=== PATIENT | female | born 1985 | race African-American/Black ===

== ENCOUNTER 2017-10-18 18:43 | Emergency (ER) | payer OTHER ==
[2017-10-18 18:59] VITALS: BP 112/71
[2017-10-18] MEDS ORDERED: LIDOCAINE PATCH 5% TOP STA (20:06)
[2017-10-18] MEDS ORDERED: KETOROLAC 60 MG/2 ML VIAL IM STA (20:06)
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
== END 2017-10-18 21:16 | disposition home or self-care (01) ==
LOC: ED 18:43
DX: S32.019A Unspecified fracture of first lumbar vertebra, initial encounter for closed fracture (principal); S32.029A Unspecified fracture of second lumbar vertebra, initial encounter for closed fracture; S32.039A Unspecified fracture of third lumbar vertebra, initial encounter for closed fracture; S32.049A Unspecified fracture of fourth lumbar vertebra, initial encounter for closed fracture; V89.2XXA Person injured in unspecified motor-vehicle accident, traffic, initial encounter; Y92.410 Unspecified street and highway as the place of occurrence of the external cause
CPT/HCPCS: 72100; 96372; 99283; A9270

== ENCOUNTER 2018-06-09 13:17 | Outpatient (CLI) | payer OTHER ==
[2018-06-09 16:54] VITALS: BP 129/64
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
== END 2018-06-09 17:10 | disposition home or self-care (01) ==
LOC: WFO 13:17 → FBP 13:23 → WFO 17:10
PROVIDERS: ATTEND Obstetrics & Gynecology
DX: O99.89 Other specified diseases and conditions complicating pregnancy, childbirth and the puerperium (principal); M54.5 Low back pain; V43.92XA Unspecified car occupant injured in collision with other type car in traffic accident, initial encounter; Z3A.21 21 weeks gestation of pregnancy
CPT/HCPCS: 99213

== ENCOUNTER 2018-07-20 08:10 | Outpatient (CLI) | payer OTHER | END 2018-07-20 08:11 | disposition home or self-care (01) | LOC: LAB 08:10 | PROVIDERS: ATTEND Nurse Practitioner Obstetrics & Gynecology | DX: O99.810 Abnormal glucose complicating pregnancy (principal) | CPT/HCPCS: 36415; 82951; 82952; 86850 ==

== ENCOUNTER 2018-09-22 12:09 | Outpatient (CLI) | payer OTHER ==
[2018-09-22 20:06] LABS: TRICHOMONAS VAGINALIS DNA NEGATIVE (NEGATIVE)
== END 2018-09-22 23:59 | disposition home or self-care (01) ==
LOC: LAB.R 12:09
PROVIDERS: ATTEND Nurse Practitioner Obstetrics & Gynecology
DX: Z36.85 Encounter for antenatal screening for Streptococcus B (principal); Z11.3 Encounter for screening for infections with a predominantly sexual mode of transmission
CPT/HCPCS: 87491; 87591; 87661; 87797

== ENCOUNTER 2018-10-19 09:47 | Outpatient (CLI) | payer OTHER ==
[2018-10-19 10:12] VITALS: BP 122/67
--- NOTE | 2018-10-20 04:09 | PROCEDURE REPORT ---
- HPI Diagnosis/Indication for NST: Other Current [facility] 10/16/18 Gestation 40 Weeks and 3 Days 1 Para 0 Vital Signs Temperature 36.9 C 10/19/18 10:11 Heart Rate 86 10/19/18 10:11 Respiratory Rate 17 10/19/18 10:11 Blood Pressure 122/67 10/19/18 10:11 O2 Saturation 100 10/19/18 10:11 Temperature 36.9 C 10/19/18 10:11 Heart Rate 86 10/19/18 10:11 Respiratory Rate 17 10/19/18 10:11 Blood Pressure 122/67 10/19/18 10:11 O2 Saturation 100 10/19/18 10:11 - NST Procedure NST Procedure Start Date 10/19/18 Start Time 09:54 Stop Time 10:45 Vibroacoustic Stimulation Used No Patient States Movement No - Results and Plan Findings/Impression: NST reactive. Baseline 135, moderate variability, + accels, no decels. 2 uterine contractions noted via tocometry which patient states are not uncomfortable and feel like deanne vang contractions. Plan: Date of service: 10/19/2018 Aliza is a 33yo @ 40.3wks gestation who presents to [facility] with c/o "not feeling well" and being very uncomfortable. She denies VB, Lof, or contractions. She reports +FM. NST reactive, baseline 135, moderate variability, + accels, no decels Plan: Patient to return this evening for pre-induction cervical ripening or sooner PRN. Pt released home with precautions. She verbalized understanding and denies further questions or concerns at this time. FINAL DIAGNOSIS: Generalized aches and pains in full term , third trimester
== END 2018-10-19 10:55 | disposition home or self-care (01) ==
LOC: WFO 09:47 → FBP 09:49 → WFO 10:55
PROVIDERS: ATTEND Nurse Practitioner Obstetrics & Gynecology
DX: Z34.03 Encounter for supervision of normal first pregnancy, third trimester (principal)
CPT/HCPCS: 59025; 99212

== ENCOUNTER 2018-10-19 17:13 | Inpatient (IN) | payer OTHER ==
[2018-10-19] MEDS ORDERED: ONDANSETRON 4 MG/2 ML VIAL IVP PRN (17:36)
[2018-10-19] MEDS ORDERED: ZOLPIDEM 5 MG TABLET PO PRN (17:41)
[2018-10-19] MEDS: SODIUM CHLORIDE FLUSH 0.9% 10 ML SYRINGE IVP PRN ×2 (18:38→22:37)
[2018-10-19] MEDS: miSOPROStol 100 MCG TABLET BC SCH ×2 (18:38→22:37)
[2018-10-19 19:13] LABS: BASOPHILS % (AUTO) 0.2 %; EOSINOPHILS # (AUTO) 0.1 10^3/uL (0.0-0.7); EOSINOPHILS % (AUTO) 0.8 %; HGB - HEMOGLOBIN 11.4 g/dL (12.0-16.0); LYMPHOCYTES # (AUTO) 2.3 10^3/uL (1.5-3.5); MEAN CORPUSCULAR HEMOGLOBIN 30.6 pg (27.0-31.0); MEAN CORPUSCULAR HGB CONC 33.1 g/dL (32.0-36.0); MEAN CORPUSCULAR VOLUME 92.5 fL (81.0-99.0); MEAN PLATELET VOLUME 10.5 fL (7.9-10.8); MONOCYTES # (AUTO) 0.5 10^3/uL (0.0-1.0); MONOCYTES % (AUTO) 8.3 %; NEUTROPHILS # (AUTO) 3.4 10^3/uL (1.5-6.6); NEUTROPHILS % (AUTO) 54.2 %; PLT - PLATELET COUNT 262 10^3/uL (130-450); RED BLOOD COUNT 3.72 10^6/uL (4.20-5.40); RED CELL DISTRIBUTION WIDTH 12.6 % (12.0-15.0); WHITE BLOOD COUNT 6.3 x10^3/uL (4.8-10.8)
[2018-10-19] MEDS ORDERED: CALCIUM CARBONATE CHEW 500 MG TABLET PO PRN (19:46)
[2018-10-20] MEDS ORDERED: SODIUM CHLORIDE FLUSH 0.9% 10 ML SYRINGE IVP SCH (01:00)
[2018-10-20] MEDS: miSOPROStol 100 MCG TABLET BC SCH ×2 (04:32→09:35)
[2018-10-20] MEDS ORDERED: fentaNYL 100 MCG/2 ML VIAL IVP ONE (05:47)
[2018-10-20] MEDS: SODIUM CHLORIDE FLUSH 0.9% 10 ML SYRINGE IVP PRN ×2 (06:09→22:50)
--- NOTE | 2018-10-20 07:47 | HISTORY & PHYSICAL EXAMINATION ---
Admit History - Visit Reason Visit Reason: Other - : 1 Parity: 0 Premature: 0 Ectopic: 0 : 0 Care: positive: [facility] Risk/History: positive: None Complications This : positive: None Smoking Status: Former smoker - Mother's Labs Mother's Blood Type: positive: A Mother's RH: positive: Positive GBS: positive: Group B Step Negative Rubella Status: positive: Immune Meds/Allgy - Home Medications Home Medications: Ambulatory Orders Medication Instructions Recorded Confirmed Hydrocodone/Acetaminophen 1 - 2 each PO Q6H PRN #10 tablet 10/18/17 [Hydrocodon-Acetaminophen 5-325] - Allergies Allergies/Adverse Reactions: Allergies Allergy/AdvReac Type Severity Reaction Status Date / Time No Known Drug Allergies Allergy Verified 10/18/17 19:00 Physical - Abdominal Exam Vital Signs: Temp Pulse Resp BP Pulse Ox 36.8 C 95 16 130/73 100 10/19/18 17:29 10/19/18 17:29 10/19/18 17:29 10/19/18 17:29 10/19/18 17:29 Contraction Frequency (min/apart): rare Contraction Intensity: positive: Mild Uterine Resting Tone: positive: Soft - Monitoring Heart Rate Baseline: 130 Strip Review: positive: Category I - Presentation Presentation: positive: Vertex - Vaginal Exam Membranes: positive: Membranes intact Dilation (in cm): fingertip Effacement (%): 50 Station: positive: -3 Cervical Position: positive: Posterior - Speculum Exam Speculum Exam Performed: positive: No Plan for Labor - Plan For Labor I expect patient to be DC'd or transferred within 96 hours.: Yes Plan for Labor: HPI: This 33yo @ 40.4wks gestation by LMP c/w 12.6wk U/S presented on 10/19/2018 for pre-induction cervical ripening. Upon arrival SVE fingertip/50/- 3, vertex, posterior with intact membranes. She denies VB, Lof, or contractions with the exception of occasional deanne vang contractions which she can feel but are not uncomfortable. She reports +FM. She has been a patient of [facility] since her transfer of care @ 26wks from [facility] where she received regular care. She has had an uneventful and healthy with the exception of some significant N/V in the first trimester and an impaired 1 hour GTT with 3 hour GTT WNL. She was placed in observation status for pre-induction cervical ripening in anticipation for elective induction of labor. Dating Criteria: LMP: 01/09/2019 Initial ultrasound @ 12.6wks c/w LMP dating Serial exams - agree OB History: G1: Current Medications: PNV Allergies: NKDA PMHx: no significant Surgical Hx: none Social Hx: Former smoker; never used smokeless tobacco. No ETOH or IVDA. No STI Hx. Denies HSV exposure. Boyfriend Lonnel Family Hx: no significant labs: Hgb 11.4 Hct 34.4 PLT 262 A positive; antibody negative Rubella immune RPR nonreactive Hep B neg Hep C neg Varicella immune GC/CT neg 28wk labs: 1 hour GTT 169 3 hour GTT 95, 155, 138, 118- WNL GBS negative Genetic screening: Serum integrated - neg Cystic fibrosis - neg Immunizations: Tdap 08/03/2018 Ultrasounds: Initial ultrasound at 12.6wks gestation c/w LMP dating FAS 06/02/2018 WNL. Anterior placenta, no previa. 3VC. Size c/w dating Physical Exam: Normocephalic, atraumatic Heart RRR w/o M/G/R Lungs CTAB Abdomen gravid, soft, nontender EFW 3200g SVE fingertip/50/-3, vertex verified by bedside ultrasound, membranes intact FHR baseline 135, moderate variability, + accels, no decels Bilateral LE's no edema Assessment: 33yo @ 40.4wks gestation by LMP c/w first trimester ultrasound GBS neg Pre-induction cervical ripening FHR Category I Plan: Observation status until active labor, SROM, or placement of epidural Pre-induction cervical ripening with 50mcg BC misoprostol q 4 hours Continuous monitoring Encouraged ambulation and position changes Advised use of Jacuzzi and nitrous oxide for pain management. Ambien 5mg PO last night was unsuccessful in promoting sleep - if not in active labor tonight, will administer 10mg ambien PO x 1 FHR appears to have slightly abnormal rhythm with potential dropped beats - termination clerk CHICKEN HATCHERY HELPER notified and advised to continue with current plan with close monitoring. Anticipate spontaneous vaginal delivery. Pt and her grandmother verbalized understanding and agree to above plan. They deny further questions or concerns at this time.
[2018-10-20] MEDS ORDERED: fentaNYL 100 MCG/2 ML VIAL IVP STA (13:14)
[2018-10-20] MEDS ORDERED: ZOLPIDEM 5 MG TABLET PO PRN (13:22)
[2018-10-20] MEDS ORDERED: LACTATED RINGERS 1,000 ML IV ONE ×2 (13:40→14:50)
[2018-10-20] MEDS ORDERED: fent/BUPIV 2 MCG/0.125% 250 ML EP ONE (19:54)
--- NOTE | 2018-10-20 20:17 | ANESTHESIA ---
Pre-Anesthesia VS, & Labs - Diagnosis active labor - Procedure vaginal delivery Vital Signs: Temp Pulse Resp BP Pulse Ox 36.8 C 95 16 130/73 100 10/19/18 17:29 10/19/18 17:29 10/19/18 17:29 10/19/18 17:29 10/19/18 17:29 Height 5 ft 4 in Weight (kg) 88.904 kg Body Mass Index 31.2 - NPO Other Last Fluid Intake: clear liquids - Is Patient ?: Yes - Lab Results Current Lab Results: Laboratory Tests 10/19/18 18:35: WBC 6.3, RBC 3.72 L, Hgb 11.4 L, Hct 34.4 L, MCV 92.5, MCH 30.6, MCHC 33.1, RDW 12.6, Plt Count 262, MPV 10.5, Neut # (Auto) 3.4, Lymph # (Auto) 2.3, [place] # (Auto) 0.5, Eos # (Auto) 0.1, Baso # (Auto) 0.0, Absolute Nucleated RBC 0.00, Nucleated RBC % 0.0 Fish Bones: 10/19/18 18:35 Home Medications and Allergies Active Medications Calcium Carbonate/Glycine (Tums) 500 mg PO Q2H PRN PRN Reason: heartburn Last Admin: 10/19/18 20:27 Dose: 500 mg Misoprostol (Cytotec) 50 mcg BC Q4HR GILMER Last Admin: 10/20/18 09:35 Dose: 50 mcg Ondansetron HCl (Zofran Inj) 4 mg IVP Q4HR PRN PRN Reason: Nausea / Vomiting Last Admin: 10/20/18 18:40 Dose: 4 mg Sodium Chloride (Normal Saline Flush 0.9%) 10 ml IVP 0100,0900,1700 GILMER Sodium Chloride (Normal Saline Flush 0.9%) 10 ml IVP PRN PRN PRN Reason: NEEDED PER PROVIDER ORDERS Last Admin: 10/20/18 06:09 Dose: 10 ml Zolpidem Tartrate (Ambien) 10 mg PO QPM PRN PRN Reason: Insomnia Allergies/Adverse Reactions: Allergies Allergy/AdvReac Type Severity Reaction Status Date / Time No Known Drug Allergies Allergy Verified 10/18/17 19:00 Anes History & Medical History - Anesthetic History Family history of Anesthesia Complications: Denies Family history of Malignant Hyperthermia: Denies - Medical History Cardiovascular: reports: None Pulmonary: reports: None Gastrointestinal: reports: GERD (during ) Urinary: reports: None Neuro: reports: None Musculoskeletal: reports: None Endocrine/Autoimmune: reports: None Blood Disorders: reports: None Smoking Status: Former smoker Psychosocial: reports: No issues indicated - Obstetrical History : 1 Parity: 0 Events: positive: None Complications: positive: None Exam General: Alert, Oriented x3, Cooperative Dental: WNL Mouth Openin Fingerbreadth Neck Mobility: Normal Mallampati classification: II Thyromental Distance: greater than 6 cm Mental/Cognitive Status: Alert/Oriented X3, Normal for patient Plan Anesthesia Type: Epidural Consent for Procedure(s) Verified and Reviewed: Yes Code Status: Attempt Resuscitation ASA classification: 2-Mild systemic disease Is this case an emergency?: No
[2018-10-20] MEDS ORDERED: NALOXONE 0.4 MG/ML VIAL IVP PRN (20:54)
[2018-10-20] MEDS ORDERED: ONDANSETRON 4 MG/2 ML VIAL IVP PRN (20:54)
[2018-10-20] MEDS ORDERED: LACTATED RINGERS 500 ML IV ONE (20:54)
[2018-10-20] MEDS ORDERED: ePHEDrine 50 MG/ML VIAL IVP PRN (20:54)
[2018-10-20] MEDS ORDERED: fent/BUPIV 2 MCG/0.125% 250 ML EP PRN (20:54)
[2018-10-20] MEDS ORDERED: NALBUPHINE 10 MG/ML AMP IVP PRN (20:54)
--- NOTE | 2018-10-20 22:08 | PROVIDER PROGRESS NOTE ---
Labor Progress Note - Uterine Monitoring Uterine Monitoring Mode: positive: External toco Contraction Frequency (min/apart): 3-8 Contraction Intensity: positive: Moderate to strong Uterine Resting Tone: positive: Soft - Monitoring Monitor Mode: positive: External ultrasound Heart Rate Baseline: 135 Heart Rate Variability: positive: Minimal (0-5 bpm) Accelerations: positive: Present, 15x15 Decelerations: positive: None Strip Review: positive: Category II - Vaginal Exam Dilation (in cm): 4-5 Effacement (%): 90 Station: -2 Cervical Position: Midposition - Labor Progress Note Labor Progress Note/Additional Text: S: Patient comfortable with epidural. Her grandmother is supportive at the bedside and is supportive. Patient called nurse with feeling that she urinated in bed and upon further investigation it was clear that she had ruptured membranes. Both pt and her grandmother were very pleased and relieved by this. Pt feels she will be able to sleep now that she is comfortable with epidural. Currently laying in bed on right side. O: FHR baseline 135, moderate variability with prolonged periods of minimal variability. Occasional accelerations. No decelerations. Audible arrhythmia persistent. Contractions palpate moderate-firm every 3-8 minutes with soft resting tone. SROM moderate amount of clear fluid A: 33yo @ 40.4wks gestation by LMP Active labor GBS neg Epidural per maternal request FHR Category I with intermittent periods of Category II - overall reassuring SROM @ 2150 P: Initiate pitocin with titration per protocol Continuous monitoring Pediatric presence will be requested at delivery secondary to arrhythmia and intermittent Category II FHR tracing Encouraged position changes in bed on peanut ball. Anticipate spontaneous vaginal delivery.
[2018-10-20] MEDS ORDERED: OXYTOCIN/DEXTROSE 5 % 30 UNIT/500 ML BAG IV ONE (22:17)
[2018-10-20] MEDS ORDERED: OXYTOCIN/DEXTROSE 5 % 30 UNIT/500 ML BAG IV SCH (22:25)
[2018-10-20] MEDS ORDERED: LACTATED RINGERS 1,000 ML IV SCH (23:00)
[2018-10-21] MEDS ORDERED: HYDROCORTISONE 1% CREAM 28 GM TUBE PR PRN (03:36)
[2018-10-21] MEDS ORDERED: WITCH HAZEL/GLYCERIN 1 PAD TOP PRN (03:36)
[2018-10-21] MEDS ORDERED: OXYTOCIN/DEXTROSE 5 % 30 UNIT/500 ML BAG IV PRN (03:37)
--- NOTE | 2018-10-21 03:48 | DELIVERY NOTE ---
Delivery Note - Labor Labor: positive: Augmented by oxytocin - Delivery Method Delivery Method: positive: Spontaneous vaginal delivery - Cervical Ripening Method Cervical Ripening Method: positive: Misoprostil - Presentation Presentation: positive: Vertex, MATILDA - left occiput anterior - Nuchal Cord Nuchal Cord: positive: Present, Reduced - Amniotic Fluid Description Amniotic Fluid Description: positive: Clear - Episiotomy Type Episiotomy Type: positive: None - Laceration Laceration: positive: 1st degree - Suture Suture Type: positive: Vicryl Suture Size: positive: 2-0 - Delivery Outcome Delivery Outcome: positive: Livebirth - [place] : positive: Placed in direct skin contact with mother, Bulb syringe, Stimulated, Warmed, Boomer used sex: positive: Female - Cord Cord: positive: 3 vessels - Placenta Placenta: positive: Intact, Spontaneous - Estimated Blood Loss Estimated Blood Loss (in cc): 350 - Post Delivery Events Post Delivery Events: positive: No post delivery events - Delivery Comments (Free Text/Narrative) Delivery Comments (Free Text/Narrative): Labor: This 33yo @ 40.5wks gestation by LMP presented on 10/19/2018 at approximately 1700 for pre-induction cervical ripening in anticipation for elective induction of labor. Cervix was fingertip/thick/high, vertex. She was given 50mcg BC misoprostol q 4 hours for a total of 5 administered doses. Pt progressed to 1/50/-3, vertex and was no longer coping well with contractions. She requested an epidural for pain management and it was placed for adequate pain relief. FHR demonstrated Category I pattern with prolonged periods of Category II but was overall reassuring with no decelerations. arrhythmia noted. Onset of active labor 10/20/2018 @ approximately 1300. SROM occurred at 2150 and was noted to be a moderate amount of clear fluid. Pitocin administered with titration per protocol for a max infusion rate of 1mU/mL. Patient progressed to c/c/+2 at 0203 on 10/21/2018. Onset of active pushing 0225. : Normal of viable female at 0257 on 10/21/2018. Nuchal cord x 1 was reduced. The was placed on maternal abdomen, stimulated, dried, and placed skin to skin. Pitocin administered via IV for hemostasis. The umbilical cord was allowed to stop pulsating at which time it was doubly clamped by CNM and cut by grandmother of the patient. Cord blood was obtained. 3VC. 's 6/8 and 1 and 5 min respectively. Placenta delivered spontaneously and intact at 0301. EBL 350mL. Uterine fundus firm and there is no excessive bleeding. The perineum, vagina, and cervix were inspected and found to have 1st degree vaginal laceration which was repaired using a 2-[address]-1 needle, in standard fashion and under sterile conditions. Vaginal examination following repair completed. Tissues well approximated. initiated. Family bonding well. Both mother and baby were left in stable condition.
[2018-10-21] MEDS: ACETAMINOPHEN 500 MG TABLET PO SCH ×2 (05:20→15:35)
[2018-10-21] MEDS: IBUPROFEN 800 MG TABLET PO SCH ×3 (05:20→18:22)
[2018-10-21] MEDS: DOCUSATE SODIUM 100 MG CAPSULE PO SCH (09:07)
[2018-10-21] MEDS ORDERED: SODIUM CHLORIDE FLUSH 0.9% 10 ML SYRINGE ONE (09:19)
[2018-10-22] MEDS: ACETAMINOPHEN 500 MG TABLET PO SCH ×2 (00:06→08:46)
[2018-10-22] MEDS: IBUPROFEN 800 MG TABLET PO SCH ×3 (00:06→12:23)
[2018-10-22] MEDS: DOCUSATE SODIUM 100 MG CAPSULE PO SCH (08:46)
--- NOTE | 2018-10-22 10:09 | Discharge Plan ---
Discharge Plan Problem Reviewed?: Yes Disposition: Home, Self Care Condition: Good Diet: Regular Activity Restrictions: No Restrictions Shower Restrictions: No Driving Restrictions: No Weight Bearing: Full Weight No Smoking: If you smoke, Please STOP! Call for help.
--- NOTE | 2018-10-22 10:13 | PROVIDER PROGRESS NOTE ---
Subjective - Subjective Subjective: S: Bonding well with baby. without difficulty. Bleeding decreased and is light. Pain well controlled with oral medications. She is glad to be going home today and feels well supported. O: BP 128/73, T 36.9, RR 16, HR 88 Heart RRR w/o M/G/R, lungs CTAB, abdomen soft and nontender with fundus firm at U-1. Bilateral LE's no edema. A: 33yo -->P1 PPD#1 s/p TSVD of viable female P: Reviewed pp sefl care and warning s/sx Advised continuation of PNV while Continue ibuprofen and colace OTC for pain management and constipation relief PRN. F/u in 1 week for support visit and in 3 weeks for routine pp visit or sooner PRN. Pt verbalized understanding and agrees to above plan. She denies further questions or concerns at this time. Objective - Vital Signs/Intake & Output Vital Signs: Vital Signs x48h Temp Pulse Resp BP Pulse Ox 10/22/18 08:00 36.9 C 88 16 128/73 10/22/18 04:30 37.1 C 83 16 108/59 L 99 Intake & Output: Intake & Output 10/19/18 10/20/18 10/21/18 10/22/18 23:59 23:59 23:59 23:59 Intake Total 1050 Output Total 75 1425 Balance -32 -007 - Lab Results Fish Bones: 10/19/18 18:35
[2018-10-22 13:16] VITALS: BP 123/70
--- NOTE | 2018-10-22 13:54 | Labor Flowsheet ---
Labor Flowsheet Datetime Report Generated by CPN: 10/22/2018 13:54 Datetime: 10/22/2018 12:19 VITAL SIGNS NBP Sys/Adina/Mean (mmHg): 123 : 70 : 83 Pulse: 88 LaborFlag: Labor Datetime: 10/21/2018 06:55 SpO2 (%): 99 Datetime: 10/21/2018 03:31 Hygiene: Mae Care; Underpad Changed Datetime: 10/21/2018 03:08 Respirations: 18 Temperature (C): 37.0 Datetime: 10/21/2018 02:55 ASSESSMENT A Monitor Mode: External US FHR Baseline Rate : 145 Variability: Moderate 6-25 bpm Accelerations: None Category: Category II Comments: loss of FHR with pushing Oxygen Method: Room Air STAGE 2 Pushing: Coached on Pushing; Urge to Push Pushing Position: Pushing with Contractions Pushing Progress: Descent with Pushing; with Pushing Datetime: 10/21/2018 02:50 UTERINE ACTIVITY Monitor Mode: External Frequency (min): 3-4 Quality: Moderate Duration (sec): 60-90 Pattern: Normal: <= 5 Contractions in 10 Minutes Resting Tone (Palpate): Relaxed Datetime: 10/21/2018 02:45 Monitor Interventions for UA: [place] Adjusted Datetime: 10/21/2018 02:30 Decelerations: Variable Datetime: 10/21/2018 02:22 I/O Interventions: Sandhu Discontinued Datetime: 10/21/2018 02:15 COMMUNICATION Communication: Provider at Bedside Provider Notified (Name): A Brody CNM Datetime: 10/21/2018 02:03 VAGINAL EXAM Dilatation (cm): 10.0 Effacement (%): 100 Station: 2 Exam by: Austin Viramontes RN Notification Reason: Status Update; Status; Labor Status Communication Comments: patient complete and +2, provider coming in for delivery Datetime: 10/21/2018 02:00 MATERNAL ASSESSMENT Level of Consciousness: Fully Conscious Headache: Denies Breath Sounds, Left: Clear and Equal Breath Sounds, Right: Clear and Equal Nausea/Vomiting: Denies RUQ Epigastric Pain: Denies TEACHING Instructional Method: Verbal Plan of Care: Plan of Care Discussed; Vaginal Delivery Datetime: 10/21/2018 01:59 Pitocin Checklist: At Least 1 Acceleration of 15 bpm x 15 Seconds in 30 Minutes or Adequate Variabi lity; No More than 5 Uterine Contractions in 10 Minutes for any 20 Minute Interval; Uterus Palpates S oft between Contractions Contraction Comments: coupling contractions Monitor Interventions for FHR: Ultrasound Adjusted FHR Baseline Changes: No Baseline Change Pain Presence: None/Denies Patient Position/Activity: Semi-Fowlers Anesthesia Level Check: T9 Datetime: 10/21/2018 01:30 Actions for Decelerations: Side to Side Datetime: 10/21/2018 00:43 Patient Care Comments: pillow between legs Datetime: 10/21/2018 00:00 Temperature Route: Oral Datetime: 10/20/2018 22:56 PATIENT CARE IV/Blood Work: IV Infusing per Order; IV Bag Number @ Datetime: 10/20/2018 22:40 MEDICATIONS Pitocin (milliunits): Started @ 1 Datetime: 10/20/2018 21:53 Vaginal Bleeding: Normal Show Cervix, Consistency: Soft Cervix, Position: Midposition Datetime: 10/20/2018 21:50 Membrane Status: Ruptured Membranes Rupture Method: Spontaneous Amniotic Fluid Color: Clear Amniotic Fluid Amount: Moderate Amniotic Fluid Odor: Normal Nitrazine: Positive Datetime: 10/20/2018 20:38 Epidural Procedure: Test Dose Datetime: 10/20/2018 20:29 PROCEDURE TIME OUT Procedure Type: 2030 Procedure Verify: Correct Patient Identity; Correct Side and Site are Marked; Accurate Procedure Co nsent Form; Agreement on Procedure to be Done; Correct Patient Position; Safety Precautions Based on Patient History or Medication Use ANESTHESIA Anesthesia Plans: Epidural Epidural Positioning: Sitting Datetime: 10/20/2018 20:00 PAIN Pain Scale: 10 Pain Type: Contraction Pain Location: Abdomen; Back Pain Relief Measures: Comfort Measures Pain Coping: Writhing Comfort Measures: Breathing/Relaxation; Hot/Cold Pack; Family Support Datetime: 10/20/2018 18:53 Pain Assessment Comments: patient states she doesn't know how much longer she can cope with pain. e xplained to patient that we will check her cervix in a few minutes and call provider. Datetime: 10/20/2018 18:40 Antiemetics/Antacids: Zofran (mg) @ 4 Datetime: 10/20/2018 17:07 Medication Comments: nitrous oxide Datetime: 10/20/2018 13:34 Analgesics/Sedatives: Fentanyl (mcg) @ 50 Datetime: 10/20/2018 13:11 Vaginal Exam Comments: fingertip Datetime: 10/20/2018 07:26 Provider Reviewed Strip: Yes Datetime: 10/20/2018 04:32 Cervical Ripening Agents: Cytotec @ 50
--- NOTE | 2018-10-22 21:32 | DISCHARGE SUMMARY ---
Physician: BRODERICK Kwok DATE OF ADMISSION: 10/20/2018 DATE OF DISCHARGE: 10/22/2018 DIAGNOSES ON ADMISSION 1. A 33-year-old, G1, P0, at 40.4 weeks' gestation by last menstrual period. 2. Pre-induction cervical ripening with misoprostol. 3. Group B Streptococcus negative. DIAGNOSES ON DISCHARGE 1. A 33-year-old, G1, P1-0-0-1, status post spontaneous vaginal delivery on 10/21/2018. 2. Normal recovery. 3. . HISTORY OF PRESENT ILLNESS: She is a patient of [facility] who presented on 019 at approximately 1700 hours for preinduction cervical ripening in anticipation for elective induc tion of labor. She was placed in observational status at that time and given 50 mcg BC misoprostol e very 4 hours for a total of 5 administered doses. The patient requested an epidural for pain managem ent and at that time, was admitted in early labor. Spontaneous rupture of membranes occurred at 2150 hours on 10/20/2018. Pitocin administered with titration per protocol for a max infusion rate of 1 milliunit/mL. The patient progressed to complete and spontaneously delivered a viable female infant at 0257 hours on 10/21/2018. Nuchal cord x1 was easily reduced. Apgars 6 and 8 at one and five [place] respectively. EBL 350 mL. The perineum, vagina and cervix were inspected and found to have firs t-degree vaginal laceration, which was repaired using a 2-0 Vicryl on a CT1 needle in standard fashio n under sterile conditions. She has been doing well in her course. She is ambulating and tolerating a regular diet. She is urinating without difficulty and her lochia is normal. Her pain is well controlled with oral medications. She will be discharged home today on day #1 with instructions to continue ib uprofen and Colace [id number] for pain management as needed. She intends to follow up with estela brooks at [facility] in one week for support visit and in three weeks for rou tyler visit. She has been given precautions to call if she has any worsening fevers, chill s, abdominal pain, increased bleeding or foul-smelling vaginal lochia. TD: 10/22/2018 10:19
== END 2018-10-22 13:30 | disposition home or self-care (01) | DRG 807 ==
LOC: WFO 17:13 → FBP 17:14 → WFO 17:35 → OBSVTOIN 10-20 20:15
PROVIDERS: ADMIT Nurse Practitioner Obstetrics & Gynecology; ATTEND Nurse Practitioner Obstetrics & Gynecology
PROC: 10E0XZZ Delivery of Products of Conception, External Approach (ICD-10-PCS; principal; 2018-10-21)
PROC: 0HQ9XZZ Repair Perineum Skin, External Approach (ICD-10-PCS; 2018-10-21)
DX: O76 Abnormality in fetal heart rate and rhythm complicating labor and delivery (principal); Z37.0 Single live birth; O70.0 First degree perineal laceration during delivery; O69.81X0 Labor and delivery complicated by cord around neck, without compression, not applicable or unspecified; Z3A.40 40 weeks gestation of pregnancy; Z87.891 Personal history of nicotine dependence
CPT/HCPCS: 59025; 85025; 96374; 96375; 96376; A9270; G0378; J7120